=== PATIENT | male | born 1980 | race Hispanic/Latino ===

== ENCOUNTER → 2022-07-29 | Outpatient (CLI) | payer OTHER ==
[~2022-07-29] MED LIST: FAMO-136 PO; LISI20TA24 PO; VITAMIN D3 PO
== END | disposition home or self-care (01) ==
LOC: RAH 09:05
PROVIDERS: ATTEND Internal Medicine Gastroenterology
DX: R10.10 Upper abdominal pain, unspecified (principal)
CPT/HCPCS: 76700